=== PATIENT | female | born 1975 | race Caucasian/White ===

== ENCOUNTER 2023-10-23 14:53 | Emergency (ER) | payer OTHER, SELFPAY ==
[2023-10-23 14:58] VITALS: BP 161/107
[2023-10-23 15:14] LABS: % Basophils 0.6 % (0-2); % Eosinophils 2.8 % (0-6); % Immature Granulocytes 0.3 % (0-0.5); % Lymphocytes 25.9 % (20.5-51.1); % Monocytes 6.4 % (1.7-9.3); Absolute Basophils 0.1 10^3/uL (0-0.2); Absolute Eosinophils 0.3 10^3/uL (0-0.7); Absolute Lymphocytes 2.5 10^3/uL (1.2-3.4); Absolute Monocytes 0.6 10^3/uL (0.1-0.6); Absolute Neutrophils 6.2 10^3/uL (1.4-6.5); Hematocrit 39.6 % (37.0-47.0); Hemoglobin 13.2 g/dL (12.0-16.0); Mean Corp Hgb Conc. 33.3 g/dL (33.0-37.0); Mean Corpuscular Hgb 26.6 pg (27.0-31.0); Mean Corpuscular Volume 79.8 fL (81.0-99.0); Mean Platelet Volume 8.9 fL (7.4-10.4); Nucleated Red Blood Cells % 0 %; Platelet Count 345 10^3/uL (130-400); Red Blood Cell Count 4.96 10^6/uL (4.20-5.40); Red Cell Dist. Width 15.8 % (11.5-14.5); White Blood Cell Count 9.7 10^3/uL (4.8-10.8)
[2023-10-23 15:25] LABS: ALT (SGPT) 30 U/L (0-35); AST (SGOT) 31 U/L (14-36); Albumin 4.6 g/dl (3.5-5.0); Alkaline Phosphatase 77 U/L (38-126); Blood Urea Nitrogen 9 mg/dl (7-17); Calcium 9.7 mg/dl (8.4-10.2); Carbon Dioxide 28 mmol/L (22-30); Chloride 103 mmol/L (98-107); Glucose 100 mg/dl (70-99); Potassium 3.8 mmol/L (3.5-5.1); Sodium 140 mmol/L (135-145); Total Bilirubin 0.4 mg/dl (0.2-1.3); Total Protein 7.4 g/dl (6.3-8.2); eGFR > 60.00
[2023-10-23 15:34] VITALS: BP 140/104
--- NOTE | 2023-10-23 15:44 | ED.GENMED ---
History of Present Illness
General
Chief Complaint: Vaginal Bleeding
Source: patient
Exam Limitations: none
Time Seen by Provider: 10/23/23 15:18
Nursing documentation reviewed up to this point in time: agreed with
History of Present Illness
History of Present Illness:
48-year-old female with no significant past medical history presents stating she has had abnormal vaginal bleeding for 5 weeks. It was light at first then intermittently heavy x 3 days in the past 4 weeks. She went to her PCP Brenna Andino
RENETTA Almonte 3 weeks ago who gave her some progesterone medication but she did not take it as the bleeding was light at that time and she was due to go to [place] on vacation. She went to [place] on October 05 and on the she had heavy
vaginal bleeding with no clots. She did start the progesterone on 10/10 and the bleeding stopped for 7 days. Yesterday the bleeding started up again very heavy and today it remains heavy with clots. Past 2 days she has had some abdominal cramping
also. She has felt lightheaded and dizzy at times.
She denies chest pain or shortness of breath.
She denies fever or chills.
Past History
Past History
ED Past Medical History: Hypothyroidism
ED Past Surgical History: Other
Social History
Tobacco: Non-smoker
Drug: None
Living: with family
Review of Systems
Review of Systems
Allergies reviewed?: Yes
All Other Systems: ROS reviewed and negative except as documented in HPI and ROS
Constitutional: Denies fever or chills
Respiratory: Denies trouble breathing
Cardiac: Denies chest pain
ABD/GI: Reports abdominal pain; Denies nausea, vomiting or diarrhea
: Reports bleeding (vaginal); Denies dysuria, frequency or difficulty voiding
Musculoskeletal: Reports no symptoms
Skin: Reports no symptoms
Neurological: Reports no symptoms
Phy Exam
Physical Exam
Physical Exam:
GENERAL: No acute distress. A&Ox3.
CONSTITUTIONAL: Afebrile.
EYES: Clear, pink conjunctivae normal
ENMT: moist mucus membranes, Pharynx nl
RESPIRATORY: Regular respirations, nonlabored, lungs clear.
CARDIOVASCULAR: Regular rate and rhythm, no murmurs, no rubs.
GI: Soft, nontender, normal BS
: Minimal bleeding at this time
MUSCULOSKELETAL: Moves with ease. Well perfused.
SKIN: Warm, dry, pink
PSYCH: Normal mood and affect. Well kept, interactive and appropriate
NEUROLOGIC: Awake, alert and oriented. No focal neurological deficits
Course
Orders/Labs/Results
Orders:
Orders
10/23/23 15:06
CMP [Comprehensive Metabolic Panel] Urgent
Complete Blood Count/With Diff Urgent
10/23/23 15:44
0.9% Sodium Chloride 1000 ml [Nss] 1,000 ml IV BOLUS
US Pelvis W Transvag Combined Urgent
Comment:
Reason For Exam: heavy vag bleeding
Abnormal Lab Results
10/23/23
15:06
MCV 79.8 L fL
(81.0-99.0)
MCH 26.6 L pg
(27.0-31.0)
RDW 15.8 H %
(11.5-14.5)
Glucose 100 H mg/dl
(70-99)
10/23/23 15:06
10/23/23 15:06
Vital Signs
Initial and Last Documented VS:
Initial Vital Signs
Temp Pulse Resp BP Pulse Ox
98.3 F 115 18 161/107 99
10/23/23 14:58 10/23/23 14:58 10/23/23 14:58 10/23/23 14:58 10/23/23 14:58
Last Documented Vital Signs
Temp Pulse Resp BP Pulse Ox
98.3 F 92 19 150/90 99
10/23/23 14:58 10/23/23 18:30 10/23/23 18:30 10/23/23 17:27 10/23/23 18:30
MDM/Problems Addressed
MDM/Problems Addressed:
48-year-old female with no significant past medical history presents stating she has had abnormal vaginal bleeding for 5 weeks. It was light at first then intermittently heavy x 3 days in the past 4 weeks. She went to her PCP Manisha
RENETTA Bailon 3 weeks ago who gave her progesterone medication but she did not take it as the bleeding was light at that time and she was due to go to [place] on vacation. She went to [place] on October 05 and on the she had heavy
vaginal bleeding with no clots. She did start the progesterone on 10/10 and the bleeding stopped for 7 days. Yesterday the bleeding started up again very heavy and today it remains heavy with clots. Past 2 days she has had some abdominal cramping
also. She has felt lightheaded and dizzy at times.
She denies chest pain or shortness of breath.
She denies fever or chills.
3:30 PM:
CBC normal
CMP normal
6:00 PM
Pelvic ultrasound radiology report read:IMPRESSION:
1. Subtle Doppler flow in the endometrium could reflect an endometrial polyp. A saline infused sonohysterogram could be performed for further evaluation.
2. Fibroid uterus.
Patient has had no significant vaginal bleeding since arrival.
PCP is aware that she is here and spoke with patient during this visit. 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 She will call her tomorrow
Patient given copy of her ultrasound report as well as labs
*Critical Care Note
Total Time (30-74mins, 75-104mins- exclusive of procedures): Not Applicable
ED Attending Note
-
Portions of this chart may have been created with voice recognition software.� Occasional wrong word or��sound alike� substitutions may have occurred due to the inherent limitations of voice recognition software.
Discharge Plan
Departure
Patient Disposition: Home (Routine Discharge)
Date of Disposition: 10/23/23
Time of Disposition: 18:27
Patient with high blood pressure during this ER visit?: No
Condition: Good
Discharge Problem:
Dysfunctional uterine bleeding
Instructions: Heavy Periods (DC)
Referrals:
Manisha Bateman PA [Specified Professional Personl] - Call in 1-3 days for appt
UNKNOWN - PT DOES,NOT KNOW [Family Provider] -
Activity Restrictions/Additional Instructions:
As we discussed, your lab work shows nothing worrisome, specifically no anemia
Since you have not had any significant bleeding since arrival, no further treatment is needed at this time
Call your PCP tomorrow, inform of this visit.
FYI: The medication I was telling you about that we sometimes give people for heavy vaginal bleeding is called Lysteda or TXA 1.3 g daily for 5 days
It comes and 650 mg tablets so you take 2 tablets 3 times a day for 5 days. If the heavy bleeding stopped before 5 days you can stop the medication.
Interventions
Interventions:
*Risk Screen - Suicide Last Done: 10/23/23 14:58
*General Assessment Last Done: 10/23/23 14:58
*Neglect/Abuse Screening Last Done: 10/23/23 14:58
ED- Fall Risk Assessment Last Done: 10/23/23 15:32
*ED COVID-19 Vaccine History Last Done: 10/23/23 15:27
*Nursing Disposition Last Done: 10/23/23 18:39
ED-Female Genitourinary Assessment Last Done: 10/23/23 15:30
Discharge Date and Time
Discharge Date/Time: 10/23/23 18:40
Print Language: BENINESE
[2023-10-23 16:00] VITALS: BP 130/85
[2023-10-23 17:27] VITALS: BP 150/90
== END 2023-10-23 18:40 | disposition home or self-care (01) ==
LOC: EMR 14:53
PROVIDERS: Emergency Medicine; EMERGENCY PHYSICIAN Student in an Organized Health Care Education/Training Program
DX: N93.8 Other specified abnormal uterine and vaginal bleeding (principal); R42 Dizziness and giddiness; R10.9 Unspecified abdominal pain; D25.9 Leiomyoma of uterus, unspecified; E03.9 Hypothyroidism, unspecified
CPT/HCPCS: 99284; 76830; 76856; 80053; 85025

== ENCOUNTER → 2024-02-20 18:01 | Outpatient (REF) | payer OTHER, SELFPAY | LOC: WDC 18:01 | PROVIDERS: ATTENDING PHYSICIAN Physician Assistant | DX: Z12.31 Encounter for screening mammogram for malignant neoplasm of breast (principal) | CPT/HCPCS: 77063; 77067 ==

== ENCOUNTER → 2025-02-20 17:21 | Outpatient (REF) | payer OTHER, SELFPAY | LOC: WDC 17:21 | PROVIDERS: ATTENDING PHYSICIAN Physician Assistant | DX: Z12.31 Encounter for screening mammogram for malignant neoplasm of breast (principal) | CPT/HCPCS: 77063; 77067 ==